=== PATIENT | female | born 1970 | race Caucasian/White ===

== ENCOUNTER 2016-04-12 09:43 | Emergency (ER) | payer OTHER ==
[2016-04-12 09:58] VITALS: TEMP 97.6; BMI 37.0
[2016-04-12] MEDS ORDERED: OXYCODONE HCL 5 MG TABLET PO ONE (10:05)
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
[2016-04-12 13:47] LABS: AUTOMATED BASOPHIL 0.7 % (0-2); AUTOMATED EOSINOPHIL 2.4 % (0-5); AUTOMATED LYMPH 30.4 % (17-44); AUTOMATED MONOCYTE 4.1 % (3-10); AUTOMATED NEUTROPHIL 62.4 % (45-76); MPV 8.4 fL (7.4-10.4)
[2016-04-12 14:01] LABS: BLOOD UREA NITROGEN 10 MG/DL (7-17); CALC CORRECTED 8.8 MG/DL (8.4-10.2); CALCIUM 8.7 MG/DL (8.4-10.2); CALCULATED OSMOLALITY 269 MOs/Kg (270-290); CHLORIDE 109 mEq/L (98-107); CPK TOTAL WITH POSSIBLE MB 67 IU/L (30-134); GLUCOSE 88 MG/DL (70-99); SODIUM LEVEL 141 mEq/L (137-146); TOTAL PROTEIN 7.2 G/DL (6.3-8.2)
[2016-04-12 14:07] LABS: PARTIAL THROMB. TIME 25.6 SEC (22-35); PT-INR 1.1
[2016-04-12 14:36] VITALS: BP 133/79; PULSE 89
== END 2016-04-12 14:25 | disposition short-term general hospital (02) ==
LOC: ED 09:43
DX: S06.5X0A Traumatic subdural hemorrhage without loss of consciousness, initial encounter (principal); V86.59XA Driver of other special all-terrain or other off-road motor vehicle injured in nontraffic accident, initial encounter; Y93.89 Activity, other specified; S06.0X0A Concussion without loss of consciousness, initial encounter
CPT/HCPCS: 36415; 70450; 70551; 73030; 73060; 73080; 73090; 80053; 82550; 83880; 84484; 85025; 85610; 85730; 93005; 99284; A9270; J3490